=== PATIENT | female | born 1950 | race Caucasian/White ===

== ENCOUNTER 2016-07-05 10:43 | Emergency (ER) | payer OTHER ==
[~2016-07-05 10:43] MED LIST: ADVIL LIQUI-GE200 M1 PO; ADVIL LIQUI-GE200 M2 PO; ALEVE220 M1 PO; AMIODARONE HCL200 MG PO; APIDRA100 U/M SQ; APRIDA SC; ASPIR 8181 M1 PO; ASPIR 8181 MG PO; ASPIRIN EC LOW81 MG PO; ATARAX25 MG PO; AZITHROMYCIN500 MG PO; BENADRYL25 M3 PO; BENADRYL25 MG PO; BENADRYL25 MG/TAB PO; BENZONATATE200 MG PO; CARVEDILOL3.125 MG PO; CARVEDILOL6.25 MG PO; CELEXA20 MG PO; CLARITHROMYCIN500 MG; COLACE100 M1 PO; COLACE50 MG PO; COREG12.5 M1 PO; COREG3.125 MG PO; CPAP; CULTURELLE1 CAP PO; CYCLOBENZAPRINE10 MG PO; CYMBALTA60 MG PO; DAILY VITAMIN1 EAC4 PO; DAILY VITAMIN1 EAC5 PO; DORYX100 MG PO; EFFER-K 10 MEQ10 MEQ PO; EFFIENT10 MG/TAB PO; ESCITALOPRAM OX10 MG PO; FAMOTIDINE20 MG PO; FUROSEMIDE40 MG PO; GABAPENTIN300 MG PO; H PO; HUMALOG100 UNIT/2 SC; HYDROCODON-ACE1 EA16 PO; HYDROCODON-ACE1 EA17 PO; HYDROCODONE/APA1 TAB PO; HYDROXYZINE HCL25 MG PO; IBUPROFEN200 M3 PO; IRON PO; IRON325 ( 65 ) PO; IRON325 M1 PO; IRON325 M3 PO; K-DUR20 MEQ/TAB NG; LANTUS SOL100 UNIT/1 SC; LANTUS100 U/ML SC; LEVEMIR100 U/M SQ; LEVEMIR100 U/ML; LEVEMIR100 U/ML SQ; LEXAPRO10 M2 PO; LEXAPRO10 MG; LEXAPRO10 MG PO; LEXAPRO20 M2 PO; LIPITOR40 M1 PO; LIPITOR40 MG PO; LIPITOR80 M1 PO; LIPITOR80 MG PO; LISINOPRIL2.5 MG PO; LYRICA50 MG PO; LYRICA75 MG/CAP PO; MOTRIN600 MG PO; MULTIVITAMINS1 EAC6 PO; NAPROXEN500 MG PO; NEXIUM40 M1 PO; NORCO 5-325 TA1 EACH PO; NORCO 5/325 TAB1 TAB PO; NORCO 7.5-3251 EACH PO; NOREL SR T1 TAB.SR . PO; NOVOLOG100 U/M; NOVOLOG100 U/M SQ; OMNICEF300 MG PO; PLAVIX75 M1 PO; SINEQUAN25 MG PO; STOOL SOFTENER100 MG PO; SYMLIN0.6 MG/ML SQ; TESSALON PERLE100 MG PO; TRAMADOL HCL50 M2 PO; TRESIBA FL200 UNIT/1 SC; ULTRAM50 MG PO; VESICARE10 M1 PO; ZESTRIL2.5 M1 PO; ZITHROMAX TRI-500 M1; ZYRTEC10 M PO; ZYRTEC10 M1 PO; ZYRTEC10 M7 PO; ZYRTEC10 MG PO
[2016-07-05] MEDS ORDERED: ISOSORBIDE MONO60 M3 PO (12:22)
[2016-07-05] MEDS ORDERED: IBUPROFEN200 M2 PO (12:31)
[2016-07-05 13:05] LABS: BASO % 0.6 % (0-2); EOS % 2.5 % (0-7); EOSINOPHIL ABSOLUTE COUNT 0.1 tho/cmm (0.0-0.7); HGB-HEMOGLOBIN 14.6 gm/dl (12.0-15.5); LYMPH % 28.4 % (20-45); LYMPH ABSOLUTE COUNT 1.5 tho/cmm (0.8-4.5); MCH (MEAN CORPUSCULAR HGB) 33.2 pg (28.0-32.0); MCHC MEAN CORPUSCULAR HGB CONC 34.8 % (32.0-36.0); MCV (MEAN CELL VOLUME) 95.5 fl (82.0-96.0); MEAN PLATELET VOLUME 10.4 cmc (9.4-12.4); MONO % 9.3 % (0-12); MONOCYTE ABSOLUTE COUNT 0.5 tho/cmm (0.0-1.2); NEUTROPHIL ABSOLUTE COUNT 3.1 tho/cmm (1.6-8.0); NEUTROPHIL-AUTOMATED 3.1 tho/cmm (1.6-8.0); NEUTROPHILS % 59.2 % (40-80); PLATELET COUNT 98 tho/cmm (150-450); RED CELL DISTRIBUTION WIDTH 12.8 % (12.4-16.4); WHITE BLOOD COUNT 5.2 tho/cmm (4.0-10.0)
[2016-07-05 13:12] LABS: ALB/GLOB RATIO 0.6 (0.8-2.0); ALKALINE PHOSPHATASE 189 U/L (33-138); ALT/SGPT 39 U/L (12-78); ANION GAP 12 mmol/L (0-20); AST/SGOT 60 U/L (10-40); BILIRUBIN,TOTAL 0.6 mg/dl (0-1.5); BLOOD UREA NITROGEN 8 mg/dl (6-24); CALCIUM 8.8 mg/dl (8.5-10.5); CARBON DIOXIDE-VENOUS 29 mmol/L (22-32); CHLORIDE 105 mmol/l (96-110); CREATININE 0.73 mg/dl (0.50-1.10); GLUCOSE 103 mg/dL (70-110); POTASSIUM 3.9 mmol/L (3.7-5.1); SODIUM 142 mmol/L (135-145); T4 (THYROXINE) 10.8 ug/dl (5.0-12.6); eGFR VALUE FOR BLACK >90 mL/Min
[2016-07-05 13:15] LABS: TSH-THYROID STIMULATING HORM. 2.26 uIU/ml (0.40-3.80)
[2016-07-05 14:18] LABS: URINE BILIRUBIN NEGATIVE (NEG); URINE BLOOD NEGATIVE (NEG); URINE GLUCOSE (UA) NEGATIVE (NEG); URINE KETONE NEGATIVE (NEG); URINE LEUKOCYTE ESTERASE NEGATIVE (NEG); URINE NITRITE NEGATIVE (NEG); URINE PROTEIN NEGATIVE (NEG)
[2016-07-05 14:22] LABS: URINE APPEARANCE CLEAR; URINE COLOR YELLOW
[2016-07-05 14:26] LABS: URINE EPITHELIAL CELLS 0-1 /[HPF] (0-10); URINE RBC 0 /[HPF] (0-5); URINE WBC 0 /[HPF] (0-5)
[2016-07-05] MEDS ORDERED: DRAMAMINE LESS25 M1 PO (15:22)
[2017-01-07] MEDS ORDERED: LIPITOR40 M1 PO (16:14)
[2017-01-07] MEDS ORDERED: COUMADIN5 M2 PO (16:17)
[2017-01-07] MEDS ORDERED: ESCITALOPRAM OX20 M1 PO (16:17)
[2017-01-07] MEDS ORDERED: PATADAY2.5 M1 OP (16:21)
[2017-01-07] MEDS ORDERED: MONISTAT 745 G1 VG (16:36)
[2017-01-07] MEDS ORDERED: LOPERAMIDE2 M2 PO (17:04)
[2017-01-11] MEDS ORDERED: LIPITOR20 M1 PO (09:20)
== END 2016-07-05 16:17 ==
LOC: EDMED 10:43
PROVIDERS: Physician Assistant
DX: R51 Headache (principal); R42 Dizziness and giddiness; R06.00 Dyspnea, unspecified; I25.10 Atherosclerotic heart disease of native coronary artery without angina pectoris; E11.9 Type 2 diabetes mellitus without complications; J44.9 Chronic obstructive pulmonary disease, unspecified; Z90.49 Acquired absence of other specified parts of digestive tract; Z90.89 Acquired absence of other organs; Z95.5 Presence of coronary angioplasty implant and graft; Z95.1 Presence of aortocoronary bypass graft; Z79.4 Long term (current) use of insulin; Z79.899 Other long term (current) drug therapy; Z79.82 Long term (current) use of aspirin
CPT/HCPCS: A9540; A9558; G8978-GP-CJ; G8979-GP-CJ; G8980-GP-CJ; J1885; J2765; J7030

== ENCOUNTER 2016-07-11 13:11 | Observation (INO) | payer OTHER ==
[~2016-07-11 13:11] MED LIST changes: +DRAMAMINE LESS25 M1 PO; +IBUPROFEN200 M2 PO; +ISOSORBIDE MONO60 M3 PO
[2016-07-11 13:56] LABS: BASO % 0.4 % (0-2); EOS % 1.7 % (0-7); EOSINOPHIL ABSOLUTE COUNT 0.1 tho/cmm (0.0-0.7); HCT-HEMATOCRIT 40.9 % (34.0-49.0); HGB-HEMOGLOBIN 14.5 gm/dl (12.0-15.5); IMMATURE GRANULOCYTES ABSOLUTE 0.01 tho/cmm (0-0.03); IMMATURE GRANULOCYTES PERCENT 0.2 % (0-0.3); LYMPH % 33.4 % (20-45); LYMPH ABSOLUTE COUNT 1.8 tho/cmm (0.8-4.5); MCHC MEAN CORPUSCULAR HGB CONC 35.5 % (32.0-36.0); MCV (MEAN CELL VOLUME) 95.8 fl (82.0-96.0); MEAN PLATELET VOLUME 10.7 cmc (9.4-12.4); MONO % 8.7 % (0-12); MONOCYTE ABSOLUTE COUNT 0.5 tho/cmm (0.0-1.2); NEUTROPHILS % 55.6 % (40-80); PLATELET COUNT 88 tho/cmm (150-450); RED BLOOD COUNT 4.27 mil/cmm (4.00-5.20); RED CELL DISTRIBUTION WIDTH 13.3 % (12.4-16.4); WHITE BLOOD COUNT 5.4 tho/cmm (4.0-10.0)
[2016-07-11 14:00] LABS: INR 1.1 INR (0.9-1.1); PROTHROMBIN TIME 12.4 SECONDS (9.0-13.6)
[2016-07-11 14:11] LABS: BLOOD UREA NITROGEN 8 mg/dl (6-24); CALCIUM 8.9 mg/dl (8.5-10.5); CARBON DIOXIDE-VENOUS 26 mmol/L (22-32); CHLORIDE 105 mmol/l (96-110); CREATININE 0.83 mg/dl (0.50-1.10); GLUCOSE 326 mg/dL (70-110); SODIUM 139 mmol/L (135-145); eGFR VALUE FOR BLACK 86 mL/Min
[2016-07-11 14:12] LABS: ANION GAP 12 mmol/L (0-20); POTASSIUM 4.2 mmol/L (3.7-5.1)
[2016-07-11] MEDS ORDERED: CLARITIN10 M6 PO (14:32)
[2016-07-11] MEDS ORDERED: PREMARIN30 GM TOP (14:35)
[2016-07-11] MEDS ORDERED: TEMOVATE30 G1 TP (14:36)
[2016-07-11] MEDS ORDERED: MECLIZINE HCL25 M3 (14:40)
[2016-07-12] MEDS ORDERED: ELIQUIS5 M1 PO (15:45)
[2016-07-12] MEDS ORDERED: POTASSIUM CHLO20 ME3 PO (15:49)
[2016-07-12] MEDS ORDERED: LASIX80 M1 PO (15:50)
[2017-01-07] MEDS ORDERED: LIPITOR40 M1 PO (16:14)
[2017-01-07] MEDS ORDERED: COUMADIN5 M2 PO (16:17)
[2017-01-07] MEDS ORDERED: ESCITALOPRAM OX20 M1 PO (16:17)
[2017-01-07] MEDS ORDERED: PATADAY2.5 M1 OP (16:21)
[2017-01-07] MEDS ORDERED: MONISTAT 745 G1 VG (16:36)
[2017-01-07] MEDS ORDERED: LOPERAMIDE2 M2 PO (17:04)
[2017-01-11] MEDS ORDERED: LIPITOR20 M1 PO (09:20)
== END 2016-07-12 16:55 ==
LOC: EDMED 13:11 → EMR2 16:43 → CAR1 17:59
PROVIDERS: Emergency Medicine; Physician Assistant; ADMIT Internal Medicine
DX: I48.91 Unspecified atrial fibrillation (principal); E78.5 Hyperlipidemia, unspecified; E11.9 Type 2 diabetes mellitus without complications; I25.10 Atherosclerotic heart disease of native coronary artery without angina pectoris; J44.9 Chronic obstructive pulmonary disease, unspecified; E66.9 Obesity, unspecified; D69.6 Thrombocytopenia, unspecified; Z68.45 Body mass index [BMI] 70 or greater, adult; Z79.02 Long term (current) use of antithrombotics/antiplatelets; Z79.4 Long term (current) use of insulin; Z79.82 Long term (current) use of aspirin; Z79.899 Other long term (current) drug therapy; Z88.0 Allergy status to penicillin; Z88.1 Allergy status to other antibiotic agents; Z88.2 Allergy status to sulfonamides; Z88.5 Allergy status to narcotic agent; Z88.7 Allergy status to serum and vaccine; Z88.8 Allergy status to other drugs, medicaments and biological substances; Z91.030 Bee allergy status; Z91.041 Radiographic dye allergy status; Z91.048 Other nonmedicinal substance allergy status; Z87.891 Personal history of nicotine dependence; Z80.0 Family history of malignant neoplasm of digestive organs; Z82.49 Family history of ischemic heart disease and other diseases of the circulatory system; Z95.1 Presence of aortocoronary bypass graft; Z95.5 Presence of coronary angioplasty implant and graft; Z90.49 Acquired absence of other specified parts of digestive tract; Z90.710 Acquired absence of both cervix and uterus; Z98.51 Tubal ligation status; Z98.890 Other specified postprocedural states
CPT/HCPCS: A9500; G0378; J1815; J1940; J2785